=== PATIENT | male | born 1980 | race Caucasian/White ===

== ENCOUNTER 2023-04-22 13:30 | Inpatient (IN) | payer BC ==
[2023-04-22] MEDS ORDERED: ACETAMINOPHEN 1000 MG/100 ML BAG IVPB ONE (13:50)
[2023-04-22 14:13] VITALS: BMI 25.7
[2023-04-22] MEDS ORDERED: ONDANSETRON 4 MG/2 ML VIAL IVPUSH ONE (14:39)
[2023-04-22] MEDS ORDERED: FAMOTIDINE 20 MG/50 ML IVPB 20 MG/50 ML MG IVPB ONE ×2 (14:39→15:00)
[2023-04-22] MEDS ORDERED: SODIUM CHLORIDE 0.9% 1000 ML INFUS.BAG IV ONE (14:39)
[2023-04-22] MEDS ORDERED: ACETAMINOPHEN INJECTION 100 ML IVPB ONE (15:00)
[2023-04-22] MEDS ORDERED: ONDANSETRON 4 MG/2 ML VIAL ONE (15:01)
[2023-04-22 15:42] LABS: HEMATOCRIT 45.6 % (35.4-49); HEMOGLOBIN 15.7 G/dL (11.7-16.9); MCH 29.5 pg (25.7-33.7); MCHC 34.4 g/dl (32.0-35.9); MEAN CELL VOLUME 85.9 fl (80-96); MEAN PLT VOLUME 7.8 fl (7.5-11.1); PLATELET COUNT 272.1 10^3/uL (134-434); RBC 5.31 10^6/uL (4.00-5.60); WHITE BLOOD COUNT 12.8 10^3/uL (4.0-10.8)
[2023-04-22 15:48] LABS: ALBUMIN 5.2 g/dl (3.4-5.0); BILIRUBIN,TOTAL 1.1 mg/dl (0.2-1); CALCIUM 10.2 mg/dl (8.5-10.1); MAGNESIUM 2.2 mg/dL (1.8-2.4); POTASSIUM 4.1 mmol/L (3.5-5.1); TOT PROT 7.6 g/dl (6.4-8.2)
[2023-04-22] MEDS ORDERED: SODIUM CHLORIDE 0.9% 500 ML INFUS.BAG IV ONE (15:52)
[2023-04-22 16:32] LABS: PLATELET ESTIMATE ADEQUATE
[2023-04-22] MEDS ORDERED: CIPROFLOXACIN 400 MG/D5W 400 MG/200 ML IVPB IVPB ONE ×2 (17:20→17:23)
[2023-04-22] MEDS ORDERED: ACETAMINOPHEN 325 MG TABLET (FP) PO PRN (20:11)
[2023-04-22] MEDS ORDERED: ACETAMINOPHEN 1000 MG/100 ML BAG IVPB PRN (20:17)
[2023-04-22] MEDS ORDERED: TRIMETHOBENZAMIDE HCL 200MG/2ML INJ IM PRN (20:23)
[2023-04-22] MEDS: DEXTROSE 5%-NORMAL SALINE 1,000 ML IV SCH (20:56)
[2023-04-23 08:36] LABS: ACTIVATED PTT 26.3 SECONDS (25.2-36.5); INR 1.2 (0.83-1.09); PROTHROMBIN TIME (PATIENT) 13.9 SEC (9.7-13.0)
[2023-04-23 08:57] LABS: BILIRUBIN,TOTAL 0.8 mg/dl (0.2-1); PHOSPHOROUS 2.6 (2.5-4.9); POTASSIUM 4.3 mmol/L (3.5-5.1); TOT PROT 5.6 g/dl (6.4-8.2)
[2023-04-23] MEDS: DEXTROSE 5%-NORMAL SALINE 1,000 ML IV SCH (21:31)
[2023-04-23] MEDS ORDERED: ONDANSETRON 4 MG/2 ML VIAL IVPUSH PRN (22:00)
[2023-04-24 09:58] LABS: ALBUMIN 4.1 g/dl (3.4-5.0); BILIRUBIN,TOTAL 0.6 mg/dl (0.2-1); CALCIUM 9.3 mg/dl (8.5-10.1); CREATININE 1.1 mg/dl (0.6-1.3); POTASSIUM 4.1 mmol/L (3.5-5.1); TOT PROT 5.7 g/dl (6.4-8.2)
[2023-04-24 10:08] VITALS: BP 120/76; PULSE 68; RESP 18; TEMP 98.2
[2023-04-24 10:55] LABS: HEMATOCRIT 37.5 % (35.4-49); HEMOGLOBIN 13.2 GM/dL (11.7-16.9); MCH 29.8 pg (25.7-33.7); MCHC 35.1 g/dl (32.0-35.9); MEAN PLT VOLUME 7.6 fl (7.5-11.1); PLATELET COUNT 223 10^3/uL (134-434); RBC 4.42 M/mm3 (4.00-5.60); RDW 13.1 % (11.9-15.9); WHITE BLOOD COUNT 8.1 K/mm3 (4.0-10.0)
[2023-04-24 12:06] LABS: ANISOCYTOSIS 0; HELMET CELLS 0; HOWELL-JOLLY BODIES 0; MACROCYTOSIS 0; OVALOCYTE 0; ROULEAU 0; SICKELED CELLS 0; TARGET CELLS 0; TEAR DROP CELLS 0; TOXIC GRANULATION 0
== END 2023-04-24 11:19 | disposition home or self-care (01) | DRG 249 ==
LOC: FER 13:30 → FM/S 17:17
PROVIDERS: ADMIT Internal Medicine; ATTEND Student in an Organized Health Care Education/Training Program
DX: K52.9 Noninfective gastroenteritis and colitis, unspecified (principal); R63.0 Anorexia; K40.90 Unilateral inguinal hernia, without obstruction or gangrene, not specified as recurrent; K59.00 Constipation, unspecified; R10.13 Epigastric pain; R11.2 Nausea with vomiting, unspecified; R14.0 Abdominal distension (gaseous)
CPT/HCPCS: 0241U-QW; 36415; 71045-TC-FY; 74177-TC; 80053; 81003; 81015; 83690; 83735; 84100; 84484; 85025; 85027; 85610; 85730; 87040; 87086; 93005; 99285-25; Q9967

== ENCOUNTER 2023-12-19 10:25 | Inpatient (IN) | payer BC ==
[2023-12-19] MEDS ORDERED: ONDANSETRON 4 MG/2 ML VIAL ONE (11:49)
[2023-12-19] MEDS ORDERED: ACETAMINOPHEN INJECTION 100 ML IVPB ONE ×2 (11:50→22:22)
[2023-12-19] MEDS: ACETAMINOPHEN 1000 MG/100 ML BAG IVPB ONE ×2 (12:05→22:24)
[2023-12-19] MEDS: SODIUM CHLORIDE 0.9% 500 ML INFUS.BAG IV ONE (12:05)
[2023-12-19] MEDS: ONDANSETRON 4 MG/2 ML VIAL IVPUSH ONE (12:18)
[2023-12-19 12:43] LABS: HEMOGLOBIN 12.2 G/dL (11.7-16.9); MCH 24.7 pg (25.7-33.7); MEAN CELL VOLUME 74.8 fl (80-96); MEAN PLT VOLUME 8.1 fl (7.5-11.1); PLATELET COUNT 281.8 10^3/uL (134-434); RBC 4.94 10^6/uL (4.00-5.60); RDW 16.4 % (11.9-15.9); WHITE BLOOD COUNT 8.5 10^3/uL (4.0-10.8)
[2023-12-19 12:54] LABS: ALBUMIN 4.7 g/dl (3.4-5.0); BILIRUBIN,TOTAL 0.9 mg/dl (0.2-1); CALCIUM 9.4 mg/dl (8.5-10.1); MAGNESIUM 2.5 mg/dL (1.8-2.4); TOT PROT 6.5 g/dl (6.4-8.2)
[2023-12-19] MEDS: SODIUM CHLORIDE 0.9% 1000 ML INFUS.BAG IV ONE (14:00)
[2023-12-19 14:52] LABS: PLATELET ESTIMATE SLT INCREASE
[2023-12-20] MEDS ORDERED: LACTATED RINGERS SOLUTION 1,000 ML/1,000 ML INFUS.BAG IV SCH (03:00)
[2023-12-20] MEDS ORDERED: ONDANSETRON 4 MG/2 ML VIAL IVPUSH PRN ×4 (03:10→19:46)
[2023-12-20] MEDS: LACTATED RINGERS SOLUTION 1,000 ML/1,000 ML INFUS.BAG IV SCH ×2 (03:43→22:05)
[2023-12-20 08:24] LABS: BASO % 0.2 % (0-2.0); EOS % 0.2 % (0-4.5); HEMATOCRIT 36.3 % (35.4-49); HEMOGLOBIN 12.3 GM/dL (11.7-16.9); LYMPH % 10.5 % (8-40); MCH 24.5 pg (25.7-33.7); MEAN CELL VOLUME 72.2 fl (80-96); MEAN PLT VOLUME 7.5 fl (7.5-11.1); MONO % 9.7 % (3.8-10.2); NEUT % 79.4 % (42.8-82.8); PLATELET COUNT 344 10^3/uL (134-434); RBC 5.03 M/mm3 (4.00-5.60); RDW 15.3 % (11.9-15.9)
[2023-12-20 08:31] LABS: POTASSIUM 4.3 mmol/L (3.5-5.1)
[2023-12-20 08:34] LABS: ALBUMIN 3.9 g/dl (3.4-5.0); BLOOD UREA NITROGEN 19.5 mg/dL (7-18)
[2023-12-20 08:38] LABS: BILIRUBIN,TOTAL 0.8 mg/dL (0.2-1); TOT PROT 6.6 g/dl (6.4-8.2)
[2023-12-20 08:42] LABS: MAGNESIUM 2.4 mg/dL (1.8-2.4)
[2023-12-20] MEDS: ACETAMINOPHEN 1000 MG/100 ML BAG IVPB PRN ×2 (09:08→22:14)
[2023-12-20] MEDS ORDERED: PIPERACILLIN/TAZOBACTAM 3.375 GM VIAL IVPB ONE (15:11)
[2023-12-20] MEDS ORDERED: HEPARIN NA (PORCINE) 5,000 UNITS/ML 1ML VIAL ONE (15:11)
[2023-12-20] MEDS ORDERED: PROPOFOL 20 ML ONE (16:15)
[2023-12-20] MEDS ORDERED: ROCURONIUM BROMIDE 50 MG/5 ML SYRINGE ONE ×2 (16:16→18:47)
[2023-12-20] MEDS ORDERED: SUCCINYLCHOLINE CHLORIDE 200 MG/10 ML SYRINGE ONE (16:16)
[2023-12-20] MEDS ORDERED: SUGAMMADEX SODIUM 200 MG/2 ML VIAL ONE (16:16)
[2023-12-20] MEDS ORDERED: MIDAZOLAM HCL 2 MG/2 ML SINGLE DOSE VIAL ONE (16:34)
[2023-12-20] MEDS: cefOXitin SODIUM 2 GM VIAL (RESTRICTED TO ID) IVPB ONE (18:12)
[2023-12-20] MEDS ORDERED: ONDANSETRON 4 MG/2 ML VIAL ONE (18:13)
[2023-12-20] MEDS ORDERED: DEXAMETHASONE SOD PHOSPHATE 4 MG/1 ML VIAL ONE (18:13)
[2023-12-21] MEDS: oxyCODONE HCL 5 MG TABLET PO PRN (00:35)
[2023-12-21 06:59] LABS: EOS % 0.1 % (0-4.5); HEMATOCRIT 32.8 % (35.4-49); HEMOGLOBIN 11.3 GM/dL (11.7-16.9); LYMPH % 9.8 % (8-40); MCH 24.9 pg (25.7-33.7); MCHC 34.4 g/dl (32.0-35.9); MEAN CELL VOLUME 72.2 fl (80-96); MEAN PLT VOLUME 7.1 fl (7.5-11.1); MONO % 10.5 % (3.8-10.2); NEUT % 79.6 % (42.8-82.8); PLATELET COUNT 285 10^3/uL (134-434); RBC 4.55 M/mm3 (4.00-5.60); RDW 15.3 % (11.9-15.9); WHITE BLOOD COUNT 7.4 K/mm3 (4.0-10.0)
[2023-12-21 07:02] LABS: INR 1.44 (0.83-1.09); PROTHROMBIN TIME (PATIENT) 16.1 SEC (9.7-13.0)
[2023-12-21 07:17] LABS: POTASSIUM 4.3 mmol/L (3.5-5.1)
[2023-12-21 07:18] LABS: CALCIUM 8.3 mg/dL (8.5-10.1)
[2023-12-21 07:19] LABS: BLOOD UREA NITROGEN 14.9 mg/dL (7-18)
[2023-12-21 07:22] LABS: CREATININE 0.9 mg/dL (0.55-1.3)
[2023-12-21] MEDS: ACETAMINOPHEN 1000 MG/100 ML BAG IVPB ONE (09:23)
[2023-12-21] MEDS: LACTATED RINGERS SOLUTION 1,000 ML IV SCH (09:23)
[2023-12-21] MEDS: ACETAMINOPHEN 500 MG TABLET (FP) PO PRN (10:50)
[2023-12-21] MEDS: IBUPROFEN 400 MG TABLET (FP) PO PRN (13:55)
[2023-12-21 16:03] VITALS: BMI 26.5
[2023-12-22] MEDS: ENOXAPARIN NA (PORCINE) 40 MG/0.4 ML DISP.SYRIN SQ SCH (10:53)
[2023-12-22 18:16] VITALS: BP 127/79; PULSE 72; RESP 20; TEMP 99
== END 2023-12-22 19:03 | disposition home or self-care (01) | DRG 221 ==
LOC: FER 10:25 → JERBED 12-20 00:08 → J7W 12-20 01:31
PROVIDERS: ADMIT Internal Medicine
PROC: 0DBN8ZX Excision of Sigmoid Colon, Via Natural or Artificial Opening Endoscopic, Diagnostic (ICD-10-PCS; 2023-12-20)
PROC: 0D1L0Z4 Bypass Transverse Colon to Cutaneous, Open Approach (ICD-10-PCS; principal; 2023-12-20 12:00)
DX: D49.0 Neoplasm of unspecified behavior of digestive system (principal); K56.609 Unspecified intestinal obstruction, unspecified as to partial versus complete obstruction; K59.00 Constipation, unspecified; K63.89 Other specified diseases of intestine; E87.1 Hypo-osmolality and hyponatremia
CPT/HCPCS: 36415; 71250-TC; 74177-TC; 80048; 80053; 82105; 82378; 83605; 83690; 83735; 84100; 84702; 85025; 85027; 85610; 86140; 86301; 86850; 86900; 86901; 88305-TC; 94760; 99285-25; J0131; J1644; Q9967

== ENCOUNTER 2024-01-20 04:36 | Day surgery (SDC) | payer BC ==
[2024-01-19 11:07] VITALS: BMI 24.4
[2024-01-20 07:14] VITALS: TEMP 98
[2024-01-20] MEDS ORDERED: SIMETHICONE 40 MG/0.6 ML BOTTLE ONE (07:50)
[2024-01-20 13:51] VITALS: BP 113/76; PULSE 85; RESP 17
== END 2024-01-20 09:30 | disposition home or self-care (01) ==
LOC: JASU-ENDO 04:36
PROVIDERS: ATTEND Student in an Organized Health Care Education/Training Program
PROC: 3E0H8KZ Introduction of Other Diagnostic Substance into Lower GI, Via Natural or Artificial Opening Endoscopic (ICD-10-PCS; principal; 2024-01-20 08:00)
DX: D12.2 Benign neoplasm of ascending colon (principal); K63.5 Polyp of colon; K56.609 Unspecified intestinal obstruction, unspecified as to partial versus complete obstruction; Z93.3 Colostomy status
CPT/HCPCS: 88305-TC

== ENCOUNTER 2024-02-06 14:00 | Inpatient (IN) | payer BC ==
[2024-02-01 15:44] VITALS: BMI 24.4
[2024-02-07] MEDS ORDERED: INDOCYANINE GREEN 25 MG/10 ML VIAL IVPUSH ONE (07:10)
[2024-02-07] MEDS ORDERED: HEPARIN NA (PORCINE) 5,000 UNITS/ML 1ML VIAL ONE (07:10)
[2024-02-07] MEDS ORDERED: cefOXitin SODIUM 2 GM VIAL (RESTRICTED TO ID) IVPB ONE (07:10)
[2024-02-07] MEDS ORDERED: BUPIVACAINE HCL/PF 0.25% (2.5MG/ML) 10 ML VIAL ONE ×2 (07:10→09:42)
[2024-02-07] MEDS ORDERED: DEXAMETHASONE SOD PHOSPHATE 4 MG/1 ML VIAL ONE (07:28)
[2024-02-07] MEDS ORDERED: ONDANSETRON 4 MG/2 ML VIAL ONE (07:28)
[2024-02-07] MEDS ORDERED: LIDOCAINE HCL/PF 2% SDV 5ML VIAL ONE (07:28)
[2024-02-07] MEDS ORDERED: ROCURONIUM BROMIDE 50 MG/5 ML SYRINGE ONE ×5 (07:29→15:54)
[2024-02-07] MEDS ORDERED: PROPOFOL 20 ML ONE (07:29)
[2024-02-07] MEDS ORDERED: SUCCINYLCHOLINE CHLORIDE 200 MG/10 ML SYRINGE ONE (07:29)
[2024-02-07] MEDS ORDERED: MIDAZOLAM HCL 2 MG/2 ML SINGLE DOSE VIAL ONE (07:29)
[2024-02-07] MEDS ORDERED: HYDROmorphone HCl 2 MG/ML VIAL ONE ×2 (08:34→14:45)
[2024-02-07] MEDS: cefOXitin SODIUM 2 GM VIAL (RESTRICTED TO ID) IVPB ONE (08:44)
[2024-02-07] MEDS: INDOCYANINE GREEN 25 MG/10 ML VIAL IVPUSH ONE (08:50)
[2024-02-07] MEDS: HEPARIN NA (PORCINE) 5,000 UNITS/ML 1ML VIAL SQ ONE (09:14)
[2024-02-07] MEDS ORDERED: ONDANSETRON 4 MG/2 ML VIAL IVPUSH PRN (09:57)
[2024-02-07] MEDS ORDERED: LACTATED RINGERS SOLUTION 1,000 ML IV SCH (10:00)
[2024-02-07] MEDS: BUPIVACAINE HCL/PF 0.25% (2.5MG/ML) 10 ML VIAL IJ ONE (10:10)
[2024-02-07] MEDS ORDERED: ACETAMINOPHEN INJECTION 100 ML ONE (10:58)
[2024-02-07] MEDS ORDERED: TRANEXAMIC ACID 1000 MG/10 ML VIAL ONE (16:35)
[2024-02-07] MEDS ORDERED: NEOSTIGMINE METHYLSULFATE 0.5 MG/1 ML - 10 ML MDV ONE (18:59)
[2024-02-07] MEDS ORDERED: oxyCODONE HCL 5 MG TABLET PO PRN (19:36)
[2024-02-07] MEDS: ACETAMINOPHEN 1000 MG/100 ML BAG IVPB SCH (19:45)
[2024-02-07] MEDS: ONDANSETRON 4 MG/2 ML VIAL IVPUSH PRN (20:14)
[2024-02-07] MEDS: LACTATED RINGERS SOLUTION 1,000 ML IV SCH (20:21)
[2024-02-07] MEDS ORDERED: HYDROmorphone HCL CARPU-JECT 2 MG/1 ML DISP.SYRIN ONE (21:57)
[2024-02-07] MEDS: HYDROmorphone HCl 2 MG/ML VIAL IVPUSH PRN ×2 (22:00→23:50)
[2024-02-08] MEDS: CEFOXITIN SODIUM 2 GM in DEXTROSE 5%-WATER - 100 ML IVPB SCH (02:27)
[2024-02-08 02:40] VITALS: RESP 18
[2024-02-08] MEDS ORDERED: TRANEXAMIC ACID 1000 MG/10 ML VIAL IVPB SCH (03:00)
[2024-02-08] MEDS: WATER IVPB SCH (04:10)
[2024-02-08] MEDS: TRANEXAMIC ACID IVPB SCH (04:10)
[2024-02-08] MEDS: DEXTROSE 5% IVPB SCH (04:10)
[2024-02-08] MEDS: ONDANSETRON 4 MG/2 ML VIAL IVPUSH PRN (07:28)
[2024-02-08 09:52] LABS: HEMOGLOBIN 9.8 GM/dL (11.7-16.9); LYMPH % 7.4 % (8-40); MCH 23.7 pg (25.7-33.7); MCHC 32.7 g/dl (32.0-35.9); MEAN CELL VOLUME 72.5 fl (80-96); MEAN PLT VOLUME 7.3 fl (7.5-11.1); MONO % 7.8 % (3.8-10.2); NEUT % 84.8 % (42.8-82.8); PLATELET COUNT 226 10^3/uL (134-434); RBC 4.14 M/mm3 (4.00-5.60); RDW 16.3 % (11.9-15.9); WHITE BLOOD COUNT 11.6 K/mm3 (4.0-10.0)
[2024-02-08] MEDS: ENOXAPARIN NA (PORCINE) 40 MG/0.4 ML DISP.SYRIN SQ SCH (10:06)
[2024-02-08 10:11] LABS: CALCIUM 8.8 mg/dL (8.5-10.1)
[2024-02-08 10:12] LABS: BLOOD UREA NITROGEN 10.5 mg/dL (7-18); MAGNESIUM 1.9 mg/dL (1.8-2.4)
[2024-02-08 10:15] LABS: CREATININE 0.8 mg/dL (0.55-1.3); PHOSPHOROUS 3.1 mg/dL (2.5-4.9)
[2024-02-08] MEDS: KETOROLAC TROMETHAMINE 30 MG/1 ML VIAL IVPUSH PRN (21:17)
[2024-02-09 09:45] LABS: BASO % 0.2 % (0-2.0); EOS % 0.1 % (0-4.5); HEMATOCRIT 28.9 % (35.4-49); HEMOGLOBIN 9.5 GM/dL (11.7-16.9); MCHC 32.8 g/dl (32.0-35.9); MEAN CELL VOLUME 73.1 fl (80-96); MEAN PLT VOLUME 7.5 fl (7.5-11.1); MONO % 5.7 % (3.8-10.2); PLATELET COUNT 185 10^3/uL (134-434); RBC 3.95 M/mm3 (4.00-5.60); RDW 16.4 % (11.9-15.9); WHITE BLOOD COUNT 9.7 K/mm3 (4.0-10.0)
[2024-02-09 10:48] LABS: POTASSIUM 3.7 mmol/L (3.5-5.1)
[2024-02-09 10:53] LABS: BLOOD UREA NITROGEN 9.2 mg/dL (7-18); CALCIUM 8.6 mg/dL (8.5-10.1); MAGNESIUM 2.1 mg/dL (1.8-2.4)
[2024-02-09 10:57] LABS: CREATININE 0.8 mg/dL (0.55-1.3); PHOSPHOROUS 2.3 mg/dL (2.5-4.9)
[2024-02-10 09:37] LABS: BASO % 0.1 % (0-2.0); EOS % 0.2 % (0-4.5); HEMATOCRIT 29.9 % (35.4-49); HEMOGLOBIN 9.8 GM/dL (11.7-16.9); LYMPH % 5.4 % (8-40); MCH 23.9 pg (25.7-33.7); MCHC 32.8 g/dl (32.0-35.9); MEAN CELL VOLUME 72.8 fl (80-96); NEUT % 89.3 % (42.8-82.8); PLATELET COUNT 221 10^3/uL (134-434); RDW 16.3 % (11.9-15.9); WHITE BLOOD COUNT 10.2 K/mm3 (4.0-10.0)
[2024-02-10 09:57] LABS: POTASSIUM 3.4 mmol/L (3.5-5.1)
[2024-02-10 10:00] LABS: CALCIUM 8.8 mg/dL (8.5-10.1)
[2024-02-10 10:01] LABS: BLOOD UREA NITROGEN 12.5 mg/dL (7-18); MAGNESIUM 2.2 mg/dL (1.8-2.4)
[2024-02-10 10:04] LABS: CREATININE 0.8 mg/dL (0.55-1.3); PHOSPHOROUS 2.6 mg/dL (2.5-4.9)
[2024-02-10] MEDS: ACETAMINOPHEN 1000 MG/100 ML BAG IVPB PRN (15:30)
[2024-02-10] MEDS: POTASSIUM CHLORIDE ORAL LIQUID 20 MEQ/15 ML PO ONE (17:58)
[2024-02-10] MEDS: ACETAMINOPHEN 500 MG TABLET (FP) PO ONE (23:09)
[2024-02-11] MEDS: ONDANSETRON 4 MG/2 ML VIAL IVPUSH ONE (03:10)
[2024-02-11 08:33] LABS: BASO % 0.2 % (0-2.0); EOS % 0.6 % (0-4.5); HEMATOCRIT 28.8 % (35.4-49); HEMOGLOBIN 9.5 GM/dL (11.7-16.9); LYMPH % 9.3 % (8-40); MCH 23.9 pg (25.7-33.7); MCHC 33.1 g/dl (32.0-35.9); MEAN CELL VOLUME 72.4 fl (80-96); MEAN PLT VOLUME 7.5 fl (7.5-11.1); MONO % 5.5 % (3.8-10.2); NEUT % 84.4 % (42.8-82.8); PLATELET COUNT 223 10^3/uL (134-434); RBC 3.98 M/mm3 (4.00-5.60); RDW 16.1 % (11.9-15.9); WHITE BLOOD COUNT 7.1 K/mm3 (4.0-10.0)
[2024-02-11 08:47] LABS: BLOOD UREA NITROGEN 13.6 mg/dL (7-18)
[2024-02-11 08:48] LABS: CALCIUM 8.8 mg/dL (8.5-10.1); CREATININE 0.7 mg/dL (0.55-1.3); MAGNESIUM 2.3 mg/dL (1.8-2.4); PHOSPHOROUS 3.3 mg/dL (2.5-4.9)
[2024-02-11 15:50] VITALS: BP 133/85; PULSE 77; TEMP 97.7
== END 2024-02-11 18:27 | disposition home or self-care (01) | DRG 221 ==
LOC: J2C 02-07 04:10 → J8W 02-07 23:30
PROVIDERS: ADMIT Surgery; ATTEND Nurse Practitioner Family
PROC: 8E0W4CZ Robotic Assisted Procedure of Trunk Region, Percutaneous Endoscopic Approach (ICD-10-PCS; 2024-02-07)
PROC: 0T768DZ Dilation of Right Ureter with Intraluminal Device, Via Natural or Artificial Opening Endoscopic (ICD-10-PCS; 2024-02-07)
PROC: 0T778DZ Dilation of Left Ureter with Intraluminal Device, Via Natural or Artificial Opening Endoscopic (ICD-10-PCS; 2024-02-07)
PROC: 0DTF4ZZ Resection of Right Large Intestine, Percutaneous Endoscopic Approach (ICD-10-PCS; principal; 2024-02-07 08:00)
PROC: 0DQE0ZZ Repair Large Intestine, Open Approach (ICD-10-PCS; 2024-02-07 08:00)
DX: Z43.3 Encounter for attention to colostomy (principal); C18.9 Malignant neoplasm of colon, unspecified; K63.89 Other specified diseases of intestine
CPT/HCPCS: 36415; 80048; 83735; 84100; 85025; 86140; 86850; 86900; 86901; 88305-TC; 88309-TC; 88329; 88341-TC; 88342-TC; 94010; 94760; J0131; J1644

== ENCOUNTER 2024-05-01 03:57 | Day surgery (SDC) | payer BC ==
[2024-04-30 10:21] VITALS: BMI 24.4
[2024-05-01] MEDS ORDERED: LIDOCAINE HCL 1%, 10 MG/ML (20ML VIAL) ONE (07:30)
[2024-05-01] MEDS ORDERED: PROPOFOL 20 ML ONE (07:53)
[2024-05-01] MEDS ORDERED: MIDAZOLAM HCL 2 MG/2 ML SINGLE DOSE VIAL ONE ×2 (07:53→08:16)
[2024-05-01] MEDS ORDERED: LIDOCAINE HCL/PF 2% SDV 5ML VIAL ONE (07:54)
[2024-05-01] MEDS ORDERED: ONDANSETRON 4 MG/2 ML VIAL ONE (08:23)
[2024-05-01] MEDS ORDERED: ceFAZolin SODIUM 1 GM VIAL ONE (08:23)
[2024-05-01] MEDS ORDERED: DEXAMETHASONE SOD PHOSPHATE 4 MG/1 ML VIAL ONE (08:23)
[2024-05-01] MEDS: ceFAZolin SODIUM 1 GM VIAL IVPB ONE (08:27)
[2024-05-01] MEDS: LIDOCAINE HCL 1%, 10 MG/ML (20ML VIAL) INF ONE ×4 (08:40)
[2024-05-01] MEDS ORDERED: ACETAMINOPHEN 325 MG TABLET (FP) PO PRN (09:26)
[2024-05-01] MEDS ORDERED: oxyCODONE HCL 5 MG TABLET PO PRN (09:26)
[2024-05-01] MEDS ORDERED: LACTATED RINGERS SOLUTION 1,000 ML IV SCH (09:30)
[2024-05-01] MEDS: ACETAMINOPHEN 1000 MG/100 ML BAG IVPB ONE (09:35)
[2024-05-01 11:59] VITALS: BP 120/70; PULSE 75; RESP 18; TEMP 98.2
== END 2024-05-01 11:30 | disposition home or self-care (01) ==
LOC: JASU-SURG 03:57
PROVIDERS: ATTEND Surgery
PROC: 02HV33Z Insertion of Infusion Device into Superior Vena Cava, Percutaneous Approach (ICD-10-PCS; 2024-05-01)
PROC: B518ZZA Fluoroscopy of Superior Vena Cava, Guidance (ICD-10-PCS; 2024-05-01)
PROC: 0JH60WZ Insertion of Totally Implantable Vascular Access Device into Chest Subcutaneous Tissue and Fascia, Open Approach (ICD-10-PCS; principal; 2024-05-01 08:00)
DX: C18.7 Malignant neoplasm of sigmoid colon (principal)
CPT/HCPCS: 36561; C1788; 71045-TC-FY; 76000-TC-FY; 94760; J0131; J1644